=== PATIENT | male | born 1945 | race Caucasian/White ===

== ENCOUNTER 2021-03-19 10:41 | Outpatient (CLI) | payer MEDICARE | END 2021-03-19 10:42 | disposition home or self-care (01) | LOC: CSHCT 10:41 | PROVIDERS: ATTEND Family Medicine | DX: Z12.2 Encounter for screening for malignant neoplasm of respiratory organs (principal); R91.8 Other nonspecific abnormal finding of lung field | CPT/HCPCS: 71271 ==